=== PATIENT | female | born 1975 | race Caucasian/White ===

== ENCOUNTER 2020-11-12 01:49 | Emergency (ER) | payer OTHER ==
[~2020-11-12] VITALS: Ht 152.4 cm; Wt 81.6 kg
[2020-11-12 01:57] VITALS: BP 113/69; Ht 152.4 cm; Wt 81.6 kg
== END 2020-11-12 02:22 ==
LOC: ED 01:49
DX: Z02.89 Encounter for other administrative examinations (principal)